=== PATIENT | female | born 1945 | race Caucasian/White ===

== ENCOUNTER 2021-09-10 07:16 | Day surgery (SDC) | payer OTHER, BC ==
[2021-09-09 12:25] VITALS: BMI 25.6
[2021-09-10] MEDS ORDERED: LIDOCAINE HCL/PF 2% SDV 5ML VIAL ONE (08:19)
[2021-09-10] MEDS ORDERED: PROPOFOL 20 ML ONE ×4 (08:19)
[2021-09-10 09:07] VITALS: TEMP 97.1
[2021-09-10 09:22] VITALS: BP 115/64; PULSE 67
== END 2021-09-10 09:15 | disposition home or self-care (01) ==
LOC: FASU-ENDO 07:16
PROVIDERS: ATTEND Internal Medicine Gastroenterology
PROC: 0DB68ZX Excision of Stomach, Via Natural or Artificial Opening Endoscopic, Diagnostic (ICD-10-PCS; 2021-09-10)
PROC: 0DB48ZX Excision of Esophagogastric Junction, Via Natural or Artificial Opening Endoscopic, Diagnostic (ICD-10-PCS; 2021-09-10)
PROC: 0DB98ZX Excision of Duodenum, Via Natural or Artificial Opening Endoscopic, Diagnostic (ICD-10-PCS; principal; 2021-09-10 08:31)
DX: K29.50 Unspecified chronic gastritis without bleeding (principal); K21.00 Gastro-esophageal reflux disease with esophagitis, without bleeding; R10.13 Epigastric pain
CPT/HCPCS: 88305-TC; 88342-TC

== ENCOUNTER 2021-12-14 07:13 | Day surgery (SDC) | payer OTHER, BC ==
[2021-12-13 15:26] VITALS: BMI 25.6
[2021-12-14] MEDS ORDERED: LIDOCAINE HCL/PF 2% SDV 5ML VIAL ONE (07:49)
[2021-12-14] MEDS ORDERED: PROPOFOL 120 ML ONE (07:49)
[2021-12-14 08:00] VITALS: TEMP 98
[2021-12-14 10:16] VITALS: RESP 16
[2021-12-14 10:24] VITALS: BP 134/65; PULSE 72
== END 2021-12-14 09:40 | disposition home or self-care (01) ==
LOC: FASU-ENDO 07:13
PROVIDERS: ATTEND Internal Medicine Gastroenterology
PROC: 0DBK8ZX Excision of Ascending Colon, Via Natural or Artificial Opening Endoscopic, Diagnostic (ICD-10-PCS; principal; 2021-12-14 08:42)
DX: Z12.11 Encounter for screening for malignant neoplasm of colon (principal); Z86.010 Personal history of colon polyps; K63.5 Polyp of colon; K64.1 Second degree hemorrhoids; K57.30 Diverticulosis of large intestine without perforation or abscess without bleeding
CPT/HCPCS: 88305-TC